=== PATIENT | male | born 1940 | race Caucasian/White ===

== ENCOUNTER → 2016-10-13 08:50 | Outpatient (CLI) | payer BC ==
[2016-08-16 17:49] VITALS: BMI 26.7
[~2016-10-13 08:50] MED LIST: BAYER CHEWABLE81 MG PO; CO Q-10100 MG PO; DIOVAN HCT 160/1 TAB PO; DIOVAN160 MG PO; DOXYCYCLINE HY100 M2 PO; FISH OIL 1,2001 CAP PO; FLORAJEN3 CAPS460 MG PO; GLUCOPHAGE500 MG PO; HYDROCODON-ACE1 EAC7 PO; HYDROCODONE-APA1 TAB PO; HYDROXYZINE PA100 MG PO; MUCINEX DM ER1 EAC1 PO; NEXIUM40 MG PO; NORVASC10 MG PO; OXYCONTIN10 MG PO; PLAVIX75 MG PO; PRAVACHOL40 MG PO; PREDNISONE20 MG PO; ULTRAM50 MG PO; XANAX0.25 MG PO; XANAX0.5 MG PO; ZOLOFT100 MG PO; ZOLOFT50 MG PO
== END | disposition home or self-care (01) ==
LOC: D.NM 10-11 08:30
DX: K82.4 Cholesterolosis of gallbladder (principal); C34.12 Malignant neoplasm of upper lobe, left bronchus or lung

== ENCOUNTER 2016-10-26 10:23 | Outpatient (CLI) | payer BC ==
[~2016-10-26] VITALS: Ht 170.2 cm; Wt 77.7 kg
[2016-10-26 11:19] LABS: BASOPHILS 0.1 % (0.0-2.0); EOSINOPHILS 4.4 % (0-7); HEMATOCRIT 39.8 % (42.0-54.0); HEMOGLOBIN 12.7 g/dL (13.5-17.5); IMMATURE GRANULOCYTES 0.1 % (0-5); LYMPHOCYTES 20.4 % (15-50); MCH 28.3 pg (26.0-34.0); MCHC 31.9 g/dL (31.0-37.0); MCV 88.8 fL (80.0-100.0); MEAN PLATELET VOLUME 10.1 fL (7.4-10.4); PLATELET COUNT 323 10x3/uL (130-400); RBC 4.48 10x6/uL (4.20-6.10); RDW 14.3 % (11.5-14.5); WBC 8.2 10x3/uL (4.8-10.8)
[2016-10-26 11:30] LABS: ANION GAP 7.4 mmol/L (8-16); CALCIUM 9.3 mg/dL (8.5-10.1); CARBON DIOXIDE 27.7 mmol/L (21.0-32.0); CREATININE - SERUM 1.2 mg/dL (0.6-1.3); POTASSIUM - SERUM 4.1 mmol/L (3.5-5.1)
[2016-10-26 11:32] LABS: APTT 27.8 SECONDS (22.8-39.4); INR 1.08 (0.85-1.17); PROTIME 13.9 SECONDS (11.6-15.0)
[2016-10-26 11:41] VITALS: Ht 170.2 cm; Wt 77.7 kg
--- NOTE | 2016-10-26 15:39 | NUR ---
1410 BACK FROM HEPATIC ABCESS DRAINED. RESP EVEN AND NONLABORED. DRESSING C/D/I NO BLEEDING.NO COS OF PAIN OR NAUSEA.
--- NOTE | 2016-10-26 15:42 | NUR ---
1542 ABDOMEN SITE DRESSING C/D/I NO BLEEDING.
--- NOTE | 2016-10-26 18:01 | NUR ---
1755 V/S TAKEN,RESP EVEN AND NONLABORED. RT SIDE ABDOMEN HEPATIC SITE WITH DRESSING C/D/I NO BLEEDING AND NO DRAIN. IV DCD CATHETER INTACT APPLIED PRESSURE X 2 MINUTES. DISCHARGE INSTRUCTIONS GONE OVER WITH PATIENT VERBALLY UNDERSTANDS. 1800 PATIENT CALLED CAB FOR RIDE HOME.
--- NOTE | 2016-10-26 18:22 | NUR ---
1817 DISCHARGED TO FRONT WAITING FOR CAB RIDE HOME.
== END 2016-10-26 18:17 | disposition home or self-care (01) ==
LOC: D.OPS 10:23 → D.CT 11:00 → D.SP 11:00 → D.CT 13:00 → D.OPS 13:00
PROVIDERS: General Practice
DX: K65.1 Peritoneal abscess (principal); Z85.118 Personal history of other malignant neoplasm of bronchus and lung

== ENCOUNTER → 2017-01-19 11:10 | Outpatient (CLI) | payer BC ==
[2016-10-26 11:41] VITALS: BMI 26.8
== END | disposition home or self-care (01) ==
LOC: D.RAD 11-07 10:00 → D.RT 12-05 09:00 → D.RAD 12-05 10:00 → D.RT 12-05 13:00
DX: J44.9 Chronic obstructive pulmonary disease, unspecified (principal)